=== PATIENT | male | born 1990 | race African-American/Black ===

== ENCOUNTER 2017-08-23 12:27 | Emergency (ER) | payer SELFPAY ==
[~2017-08-23] VITALS: Ht 182.9 cm; Wt 70.0 kg
[~2017-08-23 12:27] MED LIST: CEPHALEXIN500 MG PO; MUCINEX D1 TAB PO; NO HOME MEDS
[2017-08-23 12:48] VITALS: BP 110/60
== END 2017-08-23 12:58 | disposition home or self-care (01) | DRG 563 ==
LOC: ED 12:27
DX: S86.912A Strain of unspecified muscle(s) and tendon(s) at lower leg level, left leg, initial encounter (principal); X58.XXXA Exposure to other specified factors, initial encounter

== ENCOUNTER 2020-04-21 12:13 | Emergency (ER) | payer OTHER, BC ==
[~2020-04-21] VITALS: Ht 182.9 cm; Wt 65.0 kg
[2020-04-21 13:56] VITALS: BP 106/65
== END 2020-04-21 13:56 | disposition home or self-care (01) | DRG 552 ==
LOC: ED 12:13
DX: S16.1XXA Strain of muscle, fascia and tendon at neck level, initial encounter (principal); W20.8XXA Other cause of strike by thrown, projected or falling object, initial encounter; Y92.89 Other specified places as the place of occurrence of the external cause; Y99.0 Civilian activity done for income or pay